=== PATIENT | female | born 2000 | race Caucasian/White ===

== ENCOUNTER 2022-02-03 20:21 | Emergency (ER) | payer BC, OTHER, SELFPAY ==
--- NOTE | ~2022-02-03 | XR_ITS ---
EXAMINATION: XR mandible min 4V INDICATION: Mandibular pain TECHNIQUE: Four views of the mandible are obtained. COMPARISON: None available FINDINGS: Bone alignment is normal. No fracture is identified. The soft tissues appear unremarkable. IMPRESSION: 1. No radiographic correlate for the patient's symptoms. Reviewed, dictated and finalized at location F.
[2022-02-03 21:14] VITALS: BP 142/81; PULSE 82; RESP 18; TEMP 36.8; O2SAT 100
--- NOTE | 2022-02-03 22:25 | ED.GENADULT ---
HPI - General Adult General Chief complaint: Unspecified <Obdulia Caba PA-C - Last Filed: 02/03/22 22:34> Stated complaint: dislocated jaw <Obdulia Caba PA-C - Last Filed: 02/03/22 22:34> Time Seen by Provider: 02/03/22 22:15 <Obdulia Caba PA-C - Last Filed: 02/03/22 22:34> Source: patient <KENNY Nettles Last Filed: 02/03/22 22:34> Mode of arrival: ambulatory <KENNY Nettles Last Filed: 02/03/22 22:34> Limitations: no limitations <Obdulia Caba PA-C - Last Filed: 02/03/22 22:34> History of Present Illness HPI narrative: This is a 21-year-old female that presents to the emergency department for jaw pain. 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 Reports she has seen a specialist for this in the last couple of months. She woke up this morning feeling like her bite was off. Reports her jaw has been popping. Denies trouble swallowing or opening her mouth. <Obdulia Caba PA-C - Last Filed: 02/03/22 22:34> Related Data Allergies/adverse reactions: Allergies Allergy/AdvReac Type Severity Reaction Status Date / Time No Known Allergies Allergy Verified 02/03/22 22:50 <Obdulia Caba PA-C - Last Filed: 02/03/22 22:34> Review of Systems Review of Systems: CONSTITUTIONAL: Denies fever MUSCULOSKELETAL: Reports joint pain, and myalgia. <KENNY Nettles Last Filed: 02/03/22 22:34> All systems reviewed & are unremarkable except as noted in HPI and below <Obdulia Caba PA-C - Last Filed: 02/03/22 22:34> [facility] Past Medical History Medical History: Medical History (Updated 02/04/22 @ 00:00 by Background Daemon) History of depression <KENNY Nettles Last Filed: 02/03/22 22:34> Social History Social History: Social History (Updated 02/03/22 @ 22:27 by Obdulia Caba PA-C) Smoking status: Current every day smoker Tobacco type: e-cigarettes/vaping <Obdulia Caba PA-C - Last Filed: 02/03/22 22:34> Exam Narrative: GENERAL: Well-appearing, well-nourished, and in no acute distress. HEAD: Normocephalic, atraumatic. EYES: EOMI. ENT: Mucous membranes moist. Oropharynx without tonsillar hypertrophy exudate or other lesions. Bilateral TMs pearly muse non-bulging. No obvious deformities at the TMJ. She is able to fully open and close the mouth NECK: Supple. No adenopathy or masses. CHEST: Clear to auscultation. No respiratory distress. No wheezes rales or rhonchi HEART: Regular rate and rhythm. No murmur heard. Normal peripheral pulses. EXTREMITIES: Normal range of motion. No edema. SKIN: Warm, dry, no rash. NEURO: No focal deficits. Alert and oriented x3. PSYCH: Normal mood and affect <Obdulia Caba PA-C - Last Filed: 02/03/22 22:34> Course HOSTESS HOST/PA Physician Supervision For this patient encounter, I reviewed the HOSTESS HOST or PA documentation, treatment plan, and medical decision making. I was available for consultation as needed. <Catherine Echavarria MD - Last Filed: 02/04/22 21:00> Vital Signs Vital signs: Vital Signs Temperature 98.2 F 02/03/22 21:14 Pulse Rate 82 02/03/22 21:14 Respiratory Rate 18 02/03/22 21:14 Blood Pressure 142/81 H 02/03/22 21:14 Pulse Oximetry 100 02/03/22 21:14 Oxygen Delivery Room Air 02/03/22 21:14 Temperature 98.2 F 02/03/22 21:14 Pulse Rate 65 02/03/22 23:26 Respiratory Rate 12 02/03/22 23:26 Blood Pressure 123/88 02/03/22 23:26 Pulse Oximetry 100 02/03/22 23:26 Oxygen Delivery Room Air 02/03/22 21:14 <Obdulia Caba PA-C - Last Filed: 02/03/22 22:34> Vital Signs Temperature 98.2 F 02/03/22 21:14 Pulse Rate 82 02/03/22 21:14 Respiratory Rate 18 02/03/22 21:14 Blood Pressure 142/81 H 02/03/22 21:14 Pulse Oximetry 100 02/03/22 21:14 Oxygen Delivery Room Air 02/03/22 21:14 Temperature 98.2 F 02/03/22 21:14 Pulse Rate 65 02/03/22 23:26 Respiratory Rate 12 02/03/22 23:26
[2022-02-03] MEDS: CYCLOBENZAPRINE HCL 10 MG TABLET PO (22:50)
[2022-02-03 23:26] VITALS: BP 123/88; PULSE 65; RESP 12; RESP 18; O2SAT 100
== END 2022-02-03 23:25 | disposition home or self-care (01) ==
LOC: ANHED 22:36
PROVIDERS: Emergency Provider Emergency Medicine; PCP Physician Assistant
DX: M26.621 Arthralgia of right temporomandibular joint (principal); F17.290 Nicotine dependence, other tobacco product, uncomplicated
CPT/HCPCS: 70110; 99283; A9270